=== PATIENT | female | born 1985 | race Caucasian/White ===

== ENCOUNTER 2017-09-15 09:25 | Emergency (ER) | payer OTHER ==
[~2017-09-15] VITALS: Ht 160 cm; Wt 66.8 kg
[2017-09-15 09:29] VITALS: TEMP 36.8; Ht 160 cm; Wt 66.8 kg
[2017-09-15] MEDS ORDERED: IBUPROFEN 600 MG TAB PO STA (09:33)
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
[2017-09-15] MEDS ORDERED: OXYCODONE/ACETAMINOPHEN 5-325 TAB PO ONE (09:45)
[2017-09-15] MEDS ORDERED: GABA-113 PO (09:48)
[2017-09-15] MEDS ORDERED: DULO60CA44 PO (09:48)
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
--- NOTE | 2017-09-15 10:16 | DIAGNOSTIC IMAGING REPORT ---
PELVIS 1 OR 2 VIEW ROUTINE CLINICAL HISTORY: Pt c/o Rt hip pain pain COMPARISON: None. DISCUSSION: The bones and joint spaces appear intact. There is no evidence of fracture, dislocation or bony disease. There is no evidence for soft tissue swelling. IMPRESSION: Negative study. The above report was generated using voice recognition software. It may contain grammatical, syntax or spelling errors. Electronically signed by: Sha Rico M.D. 09/15/2017 10:15 AM Dictated Date/Time: 09/15/2017 10:14 AM
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
--- NOTE | 2017-09-15 10:17 | DIAGNOSTIC IMAGING REPORT ---
RIGHT KNEE 2 VIEWS HISTORY: Pt c/o Rt knee pain COMPARISON: None. FINDINGS: There is no fracture or dislocation. Soft tissues are unremarkable. No significant knee effusion. Cartilage spaces are maintained. IMPRESSION: Unremarkable right knee. Electronically signed by: Nestor Warner M.D. 09/15/2017 10:16 AM Dictated Date/Time: 09/15/2017 10:15 AM
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
[2017-09-15] MEDS ORDERED: OXYC-57 PO (10:40)
[2017-09-15 11:03] VITALS: BP 141/89; PULSE 76; O2SAT 100
== END 2017-09-15 11:06 | disposition home or self-care (01) ==
LOC: EDBD 09:25 → C.EDB 09:26
DX: S82.891A Other fracture of right lower leg, initial encounter for closed fracture (principal); M54.2 Cervicalgia; V89.2XXA Person injured in unspecified motor-vehicle accident, traffic, initial encounter; V43.53XA Car driver injured in collision with pick-up truck in traffic accident, initial encounter; F32.9 Major depressive disorder, single episode, unspecified; Z79.899 Other long term (current) drug therapy; Z88.2 Allergy status to sulfonamides

== ENCOUNTER → 2017-09-22 | Outpatient (CLI) | payer OTHER ==
[~2017-09-22] MED LIST: DULO60CA44 PO; GABA-113 PO; OXYC-57 PO
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
== END | disposition home or self-care (01) ==
LOC: C.CTS 14:00
DX: S92.154A Nondisplaced avulsion fracture (chip fracture) of right talus, initial encounter for closed fracture (principal); X58.XXXA Exposure to other specified factors, initial encounter